=== PATIENT | female | born 1975 | race African-American/Black ===

== ENCOUNTER 2025-07-02 19:56 | Emergency (ER) | payer OTHER ==
[2025-07-02 20:02] VITALS: O2SAT 100
[2025-07-02] MEDS ORDERED: BO1 TP (20:37)
[2025-07-02 21:02] VITALS: BP 128/76; PULSE 87; RESP 18
== END 2025-07-02 21:02 | disposition home or self-care (01) ==
LOC: ER 19:56
DX: S90.521A Blister (nonthermal), right ankle, initial encounter (principal); L29.9 Pruritus, unspecified; W57.XXXA Bitten or stung by nonvenomous insect and other nonvenomous arthropods, initial encounter; Y93.89 Activity, other specified; Y92.89 Other specified places as the place of occurrence of the external cause; Y99.8 Other external cause status
CPT/HCPCS: 99282; 99283